=== PATIENT | female | born 1985 | race Caucasian/White ===

== ENCOUNTER 2020-04-04 16:39 | Emergency (ER) | payer OTHER ==
[~2020-04-04] VITALS: Ht 170.2 cm; Wt 113.4 kg
[2020-04-04 17:22] VITALS: Ht 170.2 cm; Wt 113.4 kg
[2020-04-04 18:01] LABS: BASOPHIL % 0.4 % (0-2); PLATELET COUNT 384 x10^3mcL (130-400)
[2020-04-04 18:09] LABS: RED CELL DISTRIBUTION WIDTH 16.5 % (11.5-14.5)
[2020-04-04 19:23] LABS: CALCIUM 9.1 mg/dL (8.5-10.1); CARBON DIOXIDE 22.7 mmol/L (21-32); CHLORIDE SERUM 101 mmol/L (98-107); CREATININE SERUM 1.1 mg/dL (0.6-1.0); GFR1 60 mL/min; GLUCOSE SERUM 169 mg/dL (74-106); POTASSIUM SERUM 3.5 mmol/L (3.5-5.1); SODIUM SERUM 140 mmol/L (136-145)
[2020-04-04 19:27] LABS: ALBUMIN 4.3 g/dL (3.4-5.0); ALKALINE PHOSPHATASE 105 U/L (46-116); ALT/SGPT 54 U/L (14-59); AST/SGOT 28 U/L (15-37); BILIRUBIN TOTAL 0.39 mg/dL (0.20-1.00); TOTAL PROTEIN, SERUM 7.8 g/dL (6.4-8.2)
[2020-04-04 22:25] VITALS: BP 131/80
== END 2020-04-04 22:25 | disposition home or self-care (01) ==
LOC: ED 16:39
PROVIDERS: Emergency Medicine
DX: S06.0X1A Concussion with loss of consciousness of 30 minutes or less, initial encounter (principal); V49.9XXA Car occupant (driver) (passenger) injured in unspecified traffic accident, initial encounter; Y93.89 Activity, other specified; Y92.89 Other specified places as the place of occurrence of the external cause; Y99.8 Other external cause status
CPT/HCPCS: G0480; J1200; J1630

== ENCOUNTER 2020-04-05 18:50 | Emergency (ER) | payer OTHER ==
[~2020-04-05] VITALS: Ht 22.9 cm; Wt 120.2 kg
[2020-04-05 18:56] VITALS: Ht 22.9 cm; Wt 120.2 kg
[2020-04-05 19:34] LABS: BASOPHIL % 0.4 % (0-2)
[2020-04-05 19:35] LABS: PLATELET COUNT 404 x10^3mcL (130-400); RED CELL DISTRIBUTION WIDTH 16.5 % (11.5-14.5)
[2020-04-05 20:18] LABS: ALBUMIN 4.5 g/dL (3.4-5.0); ALKALINE PHOSPHATASE 96 U/L (46-116); ALT/SGPT 53 U/L (14-59); AST/SGOT 44 U/L (15-37); BILIRUBIN TOTAL 0.5 mg/dL (0.20-1.00); CALCIUM 9.1 mg/dL (8.5-10.1); CARBON DIOXIDE 23.3 mmol/L (21-32); CHLORIDE SERUM 101 mmol/L (98-107); CREATININE SERUM 1.1 mg/dL (0.6-1.0); GFR1 60 mL/min; GLUCOSE SERUM 192 mg/dL (74-106); POTASSIUM SERUM 3.1 mmol/L (3.5-5.1); SODIUM SERUM 141 mmol/L (136-145); TOTAL PROTEIN, SERUM 7.9 g/dL (6.4-8.2)
[2020-04-05 20:26] LABS: FREE T4 2.07 ng/dL (0.76-1.46)
[2020-04-05 20:31] LABS: FREE THYROXINE INDEX 5.2 ug/dL (1.4-4.5); T4(THYROXINE) 14.5 ug/dL (4.7-13.3)
[2020-04-05 21:31] LABS: T3 TOTAL 1.28 ng/mL
[2020-04-05 23:37] LABS: AMPHETAMINE QUAL UR NONE DETECTED (See below)
[2020-04-06 18:07] VITALS: BP 134/77
== END 2020-04-06 18:07 | disposition home or self-care (01) ==
LOC: ED 18:50
PROVIDERS: Emergency Medicine
DX: F31.9 Bipolar disorder, unspecified (principal); F12.10 Cannabis abuse, uncomplicated
CPT/HCPCS: 82962; 84439; G0480; J1200; J1630; J2060; U0003-CS

== ENCOUNTER 2020-04-13 18:25 | Emergency (ER) | payer OTHER ==
[~2020-04-13] VITALS: Ht 177.8 cm; Wt 104.8 kg
[2020-04-13 18:34] VITALS: Ht 177.8 cm; Wt 104.8 kg
[2020-04-13 19:06] LABS: BASOPHIL % 0.7 % (0-2); PLATELET COUNT 338 x10^3mcL (130-400)
[2020-04-13 19:18] LABS: CALCIUM 9.1 mg/dL (8.5-10.1); CHLORIDE SERUM 100 mmol/L (98-107); CREATININE SERUM 0.9 mg/dL (0.6-1.0); GFR1 > 60 mL/min; GLUCOSE SERUM 202 mg/dL (74-106); POTASSIUM SERUM 4.1 mmol/L (3.5-5.1); SODIUM SERUM 137 mmol/L (136-145)
[2020-04-13 19:23] LABS: ALBUMIN 4.2 g/dL (3.4-5.0); ALKALINE PHOSPHATASE 90 U/L (46-116); ALT/SGPT 43 U/L (14-59); AST/SGOT 23 U/L (15-37); BILIRUBIN TOTAL 0.5 mg/dL (0.20-1.00); TOTAL PROTEIN, SERUM 7.5 g/dL (6.4-8.2)
[2020-04-13 19:34] VITALS: BP 128/75
[2020-04-13 20:39] LABS: AMPHETAMINE QUAL UR NONE DETECTED (See below)
== END 2020-04-13 21:08 | disposition home or self-care (01) ==
LOC: ED 18:25
PROVIDERS: Emergency Medicine
DX: F23 Brief psychotic disorder (principal); E11.9 Type 2 diabetes mellitus without complications
CPT/HCPCS: G0480; J1200; J1630; J2060; Q0092

== ENCOUNTER 2020-04-19 10:08 | Emergency (ER) | payer OTHER ==
[~2020-04-19] VITALS: Ht 177.8 cm; Wt 113.4 kg
[2020-04-19 10:10] VITALS: BP 129/86; Ht 177.8 cm; Wt 113.4 kg
[2020-04-19 11:04] LABS: BASOPHIL % 0.2 % (0-2)
[2020-04-19 11:12] LABS: CALCIUM 9.3 mg/dL (8.5-10.1); CARBON DIOXIDE 29.1 mmol/L (21-32); CHLORIDE SERUM 101 mmol/L (98-107); CREATININE SERUM 1.3 mg/dL (0.6-1.0); GFR1 49 mL/min; GLUCOSE SERUM 174 mg/dL (74-106); POTASSIUM SERUM 4.1 mmol/L (3.5-5.1); SODIUM SERUM 137 mmol/L (136-145)
[2020-04-19 11:17] LABS: ALBUMIN 4.4 g/dL (3.4-5.0); ALKALINE PHOSPHATASE 113 U/L (46-116); ALT/SGPT 34 U/L (14-59); AST/SGOT 18 U/L (15-37); BILIRUBIN TOTAL 0.53 mg/dL (0.20-1.00)
[2020-04-19 11:23] LABS: PLATELET COUNT 414 x10^3mcL (130-400); RED CELL DISTRIBUTION WIDTH 17.4 % (11.5-14.5)
[2020-04-19 12:23] LABS: AMPHETAMINE QUAL UR NONE DETECTED (See below)
== END 2020-04-19 13:01 | disposition left against medical advice (07) ==
LOC: ED 10:08
PROVIDERS: Emergency Medicine
DX: F41.9 Anxiety disorder, unspecified (principal); E11.9 Type 2 diabetes mellitus without complications
CPT/HCPCS: G0480